=== PATIENT | male | born 1975 | race Caucasian/White ===

== ENCOUNTER 2016-07-05 16:47 | Emergency (ER) | payer OTHER ==
[2016-07-05 17:19] LABS: SPECIFIC GRAVITY 1.025 (1.001-1.030); URINE BILIRUBIN NEGATIVE (NEGATIVE); URINE BLOOD 4+ (NEGATIVE); URINE GLUCOSE (UA) NEGATIVE (NEGATIVE); URINE LEUKOCYTE ESTERASE NEGATIVE (NEGATIVE); URINE NITRITE NEGATIVE (NEGATIVE); URINE PROTEIN NEGATIVE (NEGATIVE); URINE UROBILINOGEN NORMAL (0-1 mg/dl)
[2016-07-05] MEDS ORDERED: ONDANSETRON 4 MG/2ML 2 ML VIAL ONE (17:19)
[2016-07-05] MEDS ORDERED: SODIUM CHLORIDE 0.9% 1,000 ML ONE (17:19)
[2016-07-05] MEDS ORDERED: MORPHINE SULFATE 4 MG/ML SYRINGE ONE ×2 (17:19→17:38)
[2016-07-05 17:21] LABS: URINE APPEARANCE HAZY; URINE COLOR DARK YELLOW
[2016-07-05 17:29] LABS: URINE BACTERIA TRACE; URINE EPITHELIAL CELLS FEW /hpf; URINE MUCUS 1+; URINE RBC 50-75 /hpf; URINE WBC RARE /hpf
[2016-07-05 17:48] LABS: ALB/GLOB RATIO 1.6 (>1.0); ALBUMIN 4.7 gm/dL (3.5-5.7); CALCIUM 9.5 mg/dL (8.6-10.3)
[2016-07-05 17:51] LABS: ABSOLUTE NEUTROPHIL COUNT 4.4 K/mm3 (1.8-7.7); BASO # 0.1 K/mm3 (0.0-0.2); EOS # 0.2 (0.0-0.5); EOS % 2.1 % (0.9-2.9); HEMATOCRIT 46.7 % (32.0-52.0); HEMOGLOBIN 16.1 gm/l (14.0-18.0); IMM NEUT # 0.1 K/mm3 (0-0.2); LYMPH # 1.9 (1.0-4.8); LYMPH % 26.3 % (15-45); MEAN CELL VOLUME 84.1 fl (80.0-94.0); MEAN CORPUSCULAR HGB CONC 34.5 g/dl (33.0-37.0); MEAN PLATELET VOLUME 9.3 fl (7.4-10.4); MONO # 0.7 (0.0-0.8); MONO % 9.2 % (4-12); NEUT % 60.4 % (43-75); PLATELET COUNT 310 K/mm3 (130-400); RED CELL DISTRIBUTION WIDTH 12.5 % (11.5-14.5)
--- NOTE | 2016-07-05 18:17 | CT ---
ABD/PELVIS W/O CON COMPARISON: None HISTORY: Bilateral flank pain for 3 hours. Technique: Using a [employer] [address] scanner, images were obtained from the diaphragm to the floor the pelvis. No intravenous contrast. An automated dose reduction technique was used to minimize patient radiation dose. Dose: CTDIvol (mGy): 19.30 DLP(mGycm): 1069.00 FINDINGS: Lung bases: Normal Inferior mediastinum and heart: Normal Liver: Decreased attenuation consistent with fatty infiltration. Gallbladder: Normal Bile ducts: Normal. Pancreas: Normal Spleen: Normal Adrenal glands: Normal Kidneys: Horseshoe kidneys. Moderate right hydronephrosis. Normal left collecting system. Ureters: 4 mm stone causing obstruction at the right ureterovesical junction. Normal left ureter. Urinary bladder: Normal Prostate gland and seminal vesicles: Normal Blood vessels: Normal. Lymph nodes: Normal Stomach: Normal Duodenum: Normal Small intestine: Normal Appendix: Normal Colon: Normal Abdominal wall and supporting musculature: Normal Bones: Normal. IMPRESSION: 1. Moderate right hydronephrosis. 4 mm stone causing obstruction at the right ureterovesical junction. 2. Horseshoe kidneys. 3. Fatty infiltration of liver. Report was sent to the emergency department [facility] record system 07/05/2016 at 18:18
[2016-07-05] MEDS ORDERED: KETOROLAC TROMETHAMINE 30 MG/ML 1 ML VIAL ONE (18:42)
== END 2016-07-05 19:33 | disposition home or self-care (01) ==
LOC: ED 16:47
DX: N20.1 Calculus of ureter (principal); Q63.1 Lobulated, fused and horseshoe kidney; R11.2 Nausea with vomiting, unspecified
CPT/HCPCS: 83690; 85025; 80053; 81001; 74176; 96375; 96376; 99284 ×2; 96374; 96361; J2270 ×2; J1885; J2405; J7030